=== PATIENT | female | born 1975 | race Caucasian/White ===

== ENCOUNTER 2017-09-18 21:26 | Emergency (ER) | payer BC ==
[2017-09-18] MEDS ORDERED: Aspirin 81 MG Tab.Chew PO ONE (21:44)
[2017-09-18] MEDS ORDERED: Sodium Chloride 0.9% 2.5 ML Syringe FLUSH PRN (21:45)
[2017-09-18] MEDS ORDERED: Pantoprazole 40 MG Vial IVPUSH ONE (21:45)
[2017-09-18] MEDS ORDERED: Sodium Chloride 0.9% 10 ML Syringe FLUSH PRN (21:45)
--- NOTE | 2017-09-18 21:49 | EDM.PDOC ---
ED HPI GENERAL MEDICAL PROBLEM - General Chief Complaint: Chest Pain Stated Complaint: PT HAS CHEST PAINS Time Seen by Provider: 09/18/17 21:31 - History of Present Illness INITIAL COMMENTS - FREE TEXT/NARRATIVE: HISTORY AND PHYSICAL: History of present illness: The patient is a 42-year-old female who presents with sudden onset of lower midsternal chest discomfort that started about 30 minutes prior to coming to the ER. The patient had a normal day earlier with no systemic complaints no upper respiratory symptoms and ate dinner, spaghetti with she, at approximately 5:30 or 4 hours ago. Patient has not had any recent trauma. Patient does smoke 8 -10 cigarettes a day. Patient says she was sitting watching TV when she had sudden onset of the discomfort which radiated underneath bilateral breasts into her back and did cause her to get sweaty and nauseated but she did not vomit. The patient says that at its peak it was an 8-1/2/10 and currently it is 0. The patient took omeprazole at home prior to coming here and took Excedrin earlier in the day for headache. The patient says that something similar to this happened a year or so ago and patient was placed on omeprazole for short period of time as it was felt that the discomfort was more GI in etiology. She does not take the omeprazole [id number] on a regular basis but has it at home in case the symptoms occur. The patient currently in the ER is not short of breath and having no chest pain. She has no abdominal complaints no nausea and has no leg pain or swelling. The patient has a history of a vaginal hysterectomy but they left her ovaries behind and she has not gone for the menopause. She has never had a stress test and she does not know her cholesterol or lipid panel. As far as family history, the patient's father had a heart attack at 57 years of age but the patient says she is not sure if this man is truly her father or not as it is unclear from her mother. The patient has never had an endoscopy. The patient denies drug use Review of systems: As per history of present illness and below otherwise all systems reviewed and negative. Past medical history: As per history of present illness and as reviewed below otherwise noncontributory. Surgical history: As per history of present illness and as reviewed below otherwise noncontributory. Social history: No reported history of drug or alcohol abuse. Family history: As per history of present illness and as reviewed below otherwise noncontributory. Physical exam: Gen.: Well-developed well-nourished female who is nontoxic and speaking clearly and easily in the ED. Vital signs have been reviewed by me HEENT: Atraumatic, normocephalic, negative for conjunctival pallor or scleral icterus, mucous membranes moist, throat clear, neck supple, nontender, trachea midline. Lungs: Clear to auscultation, breath sounds equal bilaterally, chest nontender. Heart: S1S2, regular, negative for clicks, rubs, or JVD. Abdomen: Soft, nondistended, nontender. Negative for masses or hepatosplenomegaly. NABS Pelvis: Stable nontender. 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: Deferred. Rectal: Deferred. Extremities: Atraumatic, negative for cords or calf pain. Neurovascular unremarkable. No pedal edema no leg asymmetry Neuro: Awake, alert, oriented. Cranial nerves II through XII unremarkable. Cerebellum unremarkable. Motor and sensory unremarkable throughout. Exam nonfocal. Skin: No diaphoresis normal turgor no overt rashes or lesions Diagnostics: EKG chest x-ray CBC CMP amylase lipase d-dimer INR troponin H pylori Therapeutics: IV O2 monitor aspirin Protonix Discussed with the patient and at length observation admission and all the testing results and they are declining at this time. The patient elected to follow-up in the clinic and believes it's more GI related but I did caution her to return if the symptoms return or any changes. She understands the risks and benefits of this selection. I've advised her to take 325 Ecotrin aspirin every day until she is followed up as well as the [id number] omeprazole daily. I 've also advised her on a low-fat diet and that she can always return here if the symptoms return or if she would like to seek admission. Impression: Atypical chest pain resolved prior to admission Definitive disposition and diagnosis as appropriate pending reevaluation and review of above. Middle Chest Pain Score (Numeric/FACES): 8 - Related Data Allergies Allergy/AdvReac Type Severity Reaction Status Date / Time No Known Allergies Allergy Verified 09/18/17 21:36 Home Meds: Home Meds . 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, Other (See Below) Musculoskeletal History: Reports: None Neurological History: Reports: None, Other (See Below) Other Neuro History: hx of motion sickness Psychiatric History: Reports: None Endocrine/Metabolic History: Reports: Obesity/BMI 30+ Hematologic History: Reports: None Immunologic History: Reports: None Oncologic (Cancer) History: Reports: None Dermatologic History: Reports: None - Infectious Disease History Infectious Disease History: Reports: Chicken Pox - Past Surgical History Female Surgical History: Reports: Kidney stone extraction, Tubal Ligation Social & Family History - Family History Family Medical History: Noncontributory - Tobacco Use Smoking Status *Q: Current Every Day Smoker Years of Tobacco use: 20 Packs/Tins Daily: 0.5 - Recreational Drug Use Recreational Drug Use: No Drug Use in Last 12 Months: No ED ROS GENERAL - Review of Systems Review Of Systems: ROS reveals no pertinent complaints other than HPI. ED EXAM, GENERAL - Physical Exam Exam: See Below (See dictation) Course - Vital Signs Last Recorded V/S: Last Vital Signs Temp 36.0 C 09/18/17 21:32 Pulse 76 09/18/17 22:05 Resp 16 09/18/17 22:05 BP 139/79 09/18/17 22:05 Pulse Ox 96 09/18/17 22:05 - Orders/Labs/Meds Orders: Active Orders 24 hr Category Date Time Status Cardiac Monitoring [RC] . DIRECTED Care 09/18/17 21:44 Active EKG 12 Lead [EKG Documentation Completion] [RC] STAT Care 09/18/17 21:41 Active Oxygen Therapy, ED [RC] ASDIRECTED Care 09/18/17 21:44 Active Pulse Oximetry [RC] ASDIRECTED Care 09/18/17 21:44 Active Chest 1V Frontal [CR] Stat Exams 09/18/17 21:44 Taken Sodium Chloride 0.9% [Saline Flush] Med 09/18/17 21:45 Active 10 ml FLUSH ASDIRECTED PRN Sodium Chloride 0.9% [Saline Flush] Med 09/18/17 21:45 Active 2.5 ml FLUSH ASDIRECTED PRN Saline Lock Insert [OM.PC] Stat Oth 09/18/17 21:44 Ordered Medication Orders Sodium Chloride (Saline Flush) 10 ml FLUSH ASDIRECTED PRN PRN Reason: Keep Vein Open Last Admin: 09/18/17 21:45 Dose: 10 ml Sodium Chloride (Saline Flush) 2.5 ml FLUSH ASDIRECTED PRN PRN Reason: Keep Vein Open Last Admin: 09/18/17 21:46 Dose: 2.5 ml Labs: Laboratory Tests 09/18/17 09/18/17 09/18/17 Range/Units 21:45 21:45 21:45 WBC 13.39 H (4.0-11.0) K/uL RBC 4.55 (4.30-5.90) M/uL Hgb 14.0 (12.0-16.0) g/dL Hct 41.0 (36.0-46.0) % MCV 90.1 (80.0-98.0) fL MCH 30.8 (27.0-32.0) pg MCHC 34.1 (31.0-37.0) g/dL RDW Std Deviation 43.6 (28.0-62.0) fl RDW Coeff of Reic 13 (11.0-15.0) % Plt Count 286 (150-400) K/uL MPV 10.30 (7.40-12.00) fL Neut % (Auto) 49.6 (48.0-80.0) % Lymph % (Auto) 42.0 H (16.0-40.0) % Cherry % (Auto) 6.0 (0.0-15.0) % Eos % (Auto) 2.3 (0.0-7.0) % Baso % (Auto) 0.1 (0.0-1.5) % Neut # (Auto) 6.6 H (1.4-5.7) K/uL Lymph # (Auto) 5.6 H (0.6-2.4) K/uL Cherry # (Auto) 0.8 (0.0-0.8) K/uL Eos # (Auto) 0.3 (0.0-0.7) K/uL Baso # (Auto) 0.0 (0.0-0.1) K/uL Nucleated RBC % 0.0 /100WBC Nucleated RBCs # 0 K/uL INR 1.00 (0.86-1.11) D-Dimer, Quantitative 0.27 (0.0-0.52) mg/LFEU Sodium 139 (136-146) mmol/L Potassium 3.8 (3.5-5.1) mmol/L Chloride 108 (98-110) mmol/L Carbon Dioxide 21 (21-31) mmol/L BUN 17 (6.0-23.0) mg/dL Creatinine 0.8 (0.6-1.5) mg/dL Est Cr Clr Drug Dosing 85.76 mL/min Estimated GFR (MDRD) > 60.0 ml/min Glucose 161 H (60-110) mg/dL Calcium 9.2 (8.8-10.8) mg/dL Total Bilirubin 0.6 (0.1-1.5) mg/dL AST 70 H (5-40) IU/L ALT 37 (8-54) IU/L Alkaline Phosphatase 85 (40-150) Troponin I < 0.10 (0.0-0.29) NG/ML Total Protein 6.8 (6.0-8.0) g/dL Albumin 4.0 (3.5-5.0) g/dL Globulin 2.8 (2.0-3.5) g/dL Albumin/Globulin Ratio 1.4 (1.3-2.8) Amylase 27 (10-90) U/L Lipase 30 (7-80) U/L H. pylori IgG Antibody (NEG) 09/18/17 Range/Units 21:45 WBC (4.0-11.0) K/uL RBC (4.30-5.90) M/uL Hgb (12.0-16.0) g/dL Hct (36.0-46.0) % MCV (80.0-98.0) fL MCH (27.0-32.0) pg MCHC (31.0-37.0) g/dL RDW Std Deviation (28.0-62.0) fl RDW Coeff of Eric (11.0-15.0) % Plt Count (150-400) K/uL MPV (7.40-12.00) fL Neut % (Auto) (48.0-80.0) % Lymph % (Auto) (16.0-40.0) % Cherry % (Auto) (0.0-15.0) % Eos % (Auto) (0.0-7.0) % Baso % (Auto) (0.0-1.5) % Neut # (Auto) (1.4-5.7) K/uL Lymph # (Auto) (0.6-2.4) K/uL Cherry # (Auto) (0.0-0.8) K/uL Eos # (Auto) (0.0-0.7) K/uL Baso # (Auto) (0.0-0.1) K/uL Nucleated RBC % /100WBC Nucleated RBCs # K/uL INR (0.86-1.11) D-Dimer, Quantitative (0.0-0.52) mg/LFEU Sodium (136-146) mmol/L Potassium (3.5-5.1) mmol/L Chloride (98-110) mmol/L Carbon Dioxide (21-31) mmol/L BUN (6.0-23.0) mg/dL Creatinine (0.6-1.5) mg/dL Est Cr Clr Drug Dosing mL/min Estimated GFR (MDRD) ml/min Glucose (60-110) mg/dL Calcium (8.8-10.8) mg/dL Total Bilirubin (0.1-1.5) mg/dL AST (5-40) IU/L ALT (8-54) IU/L Alkaline Phosphatase (40-150) Troponin I (0.0-0.29) NG/ML Total Protein (6.0-8.0) g/dL Albumin (3.5-5.0) g/dL Globulin (2.0-3.5) g/dL Albumin/Globulin Ratio (1.3-2.8) Amylase (10-90) U/L Lipase (7-80) U/L H. pylori IgG Antibody NEGATIVE (NEG) Meds: Medications Generic Name Dose Route Start Last Admin Trade Name Freq PRN Reason Stop Dose Admin Sodium Chloride 10 ml 09/18/17 21:45 09/18/17 21:45 Saline Flush FLUSH 10 ml ASDIRECTED PRN Administration Keep Vein Open Sodium Chloride 2.5 ml 09/18/17 21:45 09/18/17 21:46 Saline Flush FLUSH 2.5 ml ASDIRECTED PRN Administration Keep Vein Open Discontinued Medications Generic Name Dose Route Start Last Admin Trade Name Charles PRN Reason Stop Dose Admin Aspirin 324 mg 09/18/17 21:44 09/18/17 21:53 Aspirin PO 09/18/17 21:45 324 mg ONETIME ONE Administration Pantoprazole Sodium 40 mg 09/18/17 21:45 09/18/17 21:55 Protonix Iv IVPUSH 09/18/17 21:46 40 mg NOW ONE Administration Departure - Departure Time of Disposition: 22:42 Disposition: Home, Self-Care 01 Condition: Good Clinical Impression: Chest pain Qualifiers: Chest pain type: unspecified Qualified Code(s): R07.9 - Chest pain, unspecified - Discharge Information Referrals: PCP,None [Primary Care Provider] - Forms: ED Department Discharge Additional Instructions: The following information is given to patients seen in the emergency department who are being discharged to home. This information is to outline your options for follow-up care. We provide all patients seen in our emergency department with a follow-up referral. The need for follow-up, as well as the timing and circumstances, are variable depending upon the specifics of your emergency department visit. If you don't have a primary care physician on staff, we will provide you with a referral. We always advise you to contact your personal physician following an emergency department visit to inform them of the circumstance of the visit and for follow-up with them and/or the need for any referrals to a consulting specialist. The emergency department will also refer you to a specialist when appropriate. This referral assures that you have the opportunity for followup care with a specialist. All of these measure are taken in an effort to provide you with optimal care, which includes your followup. Under all circumstances we always encourage you to contact your private physician who remains a resource for coordinating your care. When calling for followup care, please make the office aware that this follow-up is from your recent emergency room visit. If for any reason you are refused follow-up, please contact the emergency department at and ask to speak to the emergency department charge nurse. [facility] Primary care- Internal Medicine and Family [place] [phone] [facility] Specialty Care-General Surgery Professional Building [address] [place] [address] [address] [place] [address] Please take 325 mg Ecotrin every day until you are followed up in the clinic. Please call at 8 AM to get an expedited follow-up in the clinic with either Dr. Lopez or one of the other providers. Also call the surgery clinic to get evaluation for a possible endoscopy. Continue to take the [id number] omeprazole daily until you are followed up. Please try to reduce smoking and eat a low-fat diet. Return to ER as needed and as discussed - My Orders Last 24 Hours: My Active Orders 09/18/17 21:41 EKG 12 Lead [EKG Documentation Completion] [RC] STAT 09/18/17 21:44 Cardiac Monitoring [RC] . DIRECTED Oxygen Therapy, ED [RC] ASDIRECTED Pulse Oximetry [RC] ASDIRECTED Chest 1V Frontal [CR] Stat Saline Lock Insert [OM.PC] Stat 09/18/17 21:45 Sodium Chloride 0.9% [Saline Flush] 10 ml FLUSH ASDIRECTED PRN Sodium Chloride 0.9% [Saline Flush] 2.5 ml FLUSH ASDIRECTED PRN - Assessment/Plan Last 24 Hours: My Active Orders 09/18/17 21:41 EKG 12 Lead [EKG Documentation Completion] [RC] STAT 09/18/17 21:44 Cardiac Monitoring [RC] . DIRECTED Oxygen Therapy, ED [RC] ASDIRECTED Pulse Oximetry [RC] ASDIRECTED Chest 1V Frontal [CR] Stat Saline Lock Insert [OM.PC] Stat 09/18/17 21:45 Sodium Chloride 0.9% [Saline Flush] 10 ml FLUSH ASDIRECTED PRN Sodium Chloride 0.9% [Saline Flush] 2.5 ml FLUSH ASDIRECTED PRN
[2017-09-18 22:22] LABS: CHLORIDE,CL 108 mmol/L (98-110); SODIUM,NA 139 mmol/L (136-146)
[2017-09-18 22:44] VITALS: BP 128/85
--- NOTE | 2017-09-19 12:58 | CR ---
EXAM DATE: 09/18/17 PATIENT'S AGE: 42 Patient: CHAUNCEY BELLA Facility: [place], [place] Site Site : 1975 Study: XRay Chest [id number] 10:07:20 PM Ordering Physician: MICHEAL Final Report: Indication: Chest pain Technique: Chest 1 view Comparison: June 12, 2016. Findings/Impression: Stable cardiomediastinal silhouette. Lungs and pleural spaces are clear. No acute osseous abnormality. Dictated by Gypsy Loera MD @ Sep 18 2017 10:20PM (Electronic Signature) Report Signed by Proxy. [facility]
== END 2017-09-18 22:47 | disposition home or self-care (01) ==
LOC: MW.ED 21:26
DX: R07.89 Other chest pain (principal); F17.210 Nicotine dependence, cigarettes, uncomplicated
CPT/HCPCS: 36415; 71010; 80053; 82150; 83690; 84484; 85025; 85379; 85610; 86677; 93005; 96374; 99285; A9270; C9113; 99282

== ENCOUNTER 2017-09-19 | Observation (INO) | payer BC ==
[2017-09-19] MEDS ORDERED: Sodium Chloride 0.9% 2.5 ML Syringe FLUSH PRN ×2 (00:03→02:54)
[2017-09-19] MEDS ORDERED: Sodium Chloride 0.9% 10 ML Syringe FLUSH PRN ×2 (00:03→02:54)
[2017-09-19] MEDS ORDERED: Ondansetron 4 MG/2 ML SDV IVPUSH ONE (00:08)
[2017-09-19] MEDS ORDERED: HYDROmorphone 2 MG/ML Syringe IVPUSH ONE (00:08)
[2017-09-19] MEDS ORDERED: Alum Hydrox/Mag Hydrox/Simeth 15 ML, Metoclopramide 5 MG, Lidocaine 2% 5 ML PO ONE ×3 (00:09)
--- NOTE | 2017-09-19 00:09 | EDM.PDOC ---
ED HPI GENERAL MEDICAL PROBLEM - General Chief Complaint: Abdominal Pain Stated Complaint: PT HAS CHEST PAINS Time Seen by Provider: 09/19/17 00:02 - History of Present Illness INITIAL COMMENTS - FREE TEXT/NARRATIVE: HISTORY AND PHYSICAL: History of present illness: The patient is a 42-year-old female with no significant past medical history who represented after being seen just an hour or so earlier in the [facility] department. She was seen at that time for sudden onset of lower mid sternal chest pain that she has had in the past took omeprazole at home prior to coming here. By the time she arrived in the ED on that visit it had resolved. We performed an EKG chest x-ray CBC CMP amylase lipase d-dimer troponin and H. pylori all of which were negative. Patient received aspirin and Protonix here only. She never redeveloped the pain. She was offered admission and declined and wanted to go home and pursue outpatient evaluation. She returns now with the same as comfort which she says is severe like it was before she came the last time. It is midsternal and epigastric and does not radiate. It is associated with nausea but no diaphoresis . She has no shortness of breath. She has no lower abdominal pain and says that the epigastric discomfort does go a little bit to the right. She has last eaten any food at least several hours ago and after she left the ED she just without ready for bed and the pain returned. She has no leg pain or swelling. Everything about this episode is similar to her prior. Review of systems: As per history of present illness and below otherwise all systems reviewed and negative. Past medical history: As per history of present illness and as reviewed below otherwise noncontributory. Surgical history: As per history of present illness and as reviewed below otherwise noncontributory. Social history: No reported history of drug or alcohol abuse. Family history: As per history of present illness and as reviewed below otherwise noncontributory. Physical exam: General: Well-developed mildly overweight female who is nontoxic and looks very uncomfortable the room and keeps putting her fist in the middle of her chest and writhing about in a colicky-like fashion. Vital signs of been reviewed by me. HEENT: Atraumatic, normocephalic, negative for conjunctival pallor or scleral icterus, mucous membranes moist, throat clear, neck supple, nontender, trachea midline. Lungs: Clear to auscultation, breath sounds equal bilaterally, chest nontender. Heart: S1S2, regular rate and rhythm no overt murmurs. Abdomen: Soft, nondistended, there is some mild discomfort in the epigastric and right upper quadrant area but no rebound or guarding Negative for masses or hepatosplenomegaly. NABS Pelvis: Stable nontender. 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: Deferred. Rectal: Deferred. Extremities: Atraumatic, negative for cords or calf pain. Neurovascular unremarkable.No pedal edema or leg asymmetry Neuro: Awake, alert, oriented. Cranial nerves II through XII unremarkable. Cerebellum unremarkable. Motor and sensory unremarkable throughout. Exam nonfocal. Diagnostics: EKG troponin CT scan of the chest abdomen and pelvis Therapeutics: IV O2 monitor IV fluids Zofran Dilaudid GI cocktail sublingual nitroglycerin When the patient was given the sublingual nitroglycerin by the nurse there was no change in her pain but now after Dilaudid her pain is pretty much gone and we are awaiting further testing. 0200: Testing results in case was discussed with our hospitalist Dr. Jones who accepts the patient for observation admission. I will discuss all testing results with the patient and at bedside and she will be agreeable for the admission. She told me that she was agreeable to admission when she arrived this second time Impression: Chest pain/epigastric pain rule out ACS Definitive disposition and diagnosis as appropriate pending reevaluation and review of above. Epigastric Pain Score (Numeric/FACES): 8 - Related Data Allergies Allergy/AdvReac Type Severity Reaction Status Date / Time No Known Allergies Allergy Verified 09/19/17 00:12 Home Meds: Home Meds . 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, Other (See Below) Musculoskeletal History: Reports: None Neurological History: Reports: None, Other (See Below) Other Neuro History: hx of motion sickness Psychiatric History: Reports: None Endocrine/Metabolic History: Reports: Obesity/BMI 30+ Hematologic History: Reports: None Immunologic History: Reports: None Oncologic (Cancer) History: Reports: None Dermatologic History: Reports: None - Infectious Disease History Infectious Disease History: Reports: Chicken Pox - Past Surgical History Female Surgical History: Reports: Kidney stone extraction, Tubal Ligation Social & Family History - Family History Family Medical History: Noncontributory - Tobacco Use Smoking Status *Q: Current Every Day Smoker Years of Tobacco use: 20 Packs/Tins Daily: 0.5 - Caffeine Use Caffeine Use: Reports: Coffee, Energy Drinks, Soda Caffeine Use Comment: "very rarely" - Recreational Drug Use Recreational Drug Use: No Drug Use in Last 12 Months: No ED ROS GENERAL - Review of Systems Review Of Systems: ROS reveals no pertinent complaints other than HPI. ED EXAM, GENERAL - Physical Exam Exam: See Below (See dictation) Course - Vital Signs Last Recorded V/S: Last Vital Signs Temp 36.7 C 09/19/17 01:42 Pulse 78 09/19/17 01:42 Resp 18 09/19/17 01:42 BP 122/65 09/19/17 01:42 Pulse Ox 95 09/19/17 01:42 - Orders/Labs/Meds Orders: Active Orders 24 hr Category Date Time Status Cardiac Monitoring [RC] . DIRECTED Care 09/19/17 00:03 Active EKG Documentation Completion [RC] STAT Care 09/19/17 00:03 Active Oxygen Therapy, ED [RC] ASDIRECTED Care 09/19/17 00:03 Active Pulse Oximetry [RC] ASDIRECTED Care 09/19/17 00:03 Active Abdomen Pelvis w Cont [CT] Stat Exams 09/19/17 00:07 Taken Ang Chest [CT] Stat Exams 09/19/17 00:07 Taken Sodium Chloride 0.9% [Normal Saline] 1,000 ml Med 09/19/17 00:15 Active IV ASDIRECTED Sodium Chloride 0.9% [Saline Flush] Med 09/19/17 00:03 Active 10 ml FLUSH ASDIRECTED PRN Sodium Chloride 0.9% [Saline Flush] Med 09/19/17 00:03 Active 2.5 ml FLUSH ASDIRECTED PRN Saline Lock Insert [OM.PC] Stat Oth 09/19/17 00:03 Ordered Medication Orders Sodium Chloride (Normal Saline) 1,000 mls @ 125 mls/hr IV ASDIRECTED NATE Last Admin: 09/19/17 00:29 Dose: 125 mls/hr Sodium Chloride (Saline Flush) 10 ml FLUSH ASDIRECTED PRN PRN Reason: Keep Vein Open Sodium Chloride (Saline Flush) 2.5 ml FLUSH ASDIRECTED PRN PRN Reason: Keep Vein Open Labs: Laboratory Tests 09/19/17 Range/Units 00:22 Troponin I < 0.10 (0.0-0.29) NG/ML Meds: Medications Generic Name Dose Route Start Last Admin Trade Name Freq PRN Reason Stop Dose Admin Sodium Chloride 1,000 mls @ 125 mls/hr 09/19/17 00:15 09/19/17 00:29 Normal Saline IV 125 mls/hr ASDIRECTED NATE Administration Sodium Chloride 10 ml 09/19/17 00:03 Saline Flush FLUSH ASDIRECTED PRN Keep Vein Open Sodium Chloride 2.5 ml 09/19/17 00:03 Saline Flush FLUSH ASDIRECTED PRN Keep Vein Open Discontinued Medications Generic Name Dose Route Start Last Admin Trade Name Freq PRN Reason Stop Dose Admin Al Hydroxide/Mg Hydroxide 15 0 ml 09/19/17 00:09 09/19/17 00:31 ml/ Metoclopramide HCl 5 mg/ PO 09/19/17 00:10 1 each Lidocaine HCl 5 ml ONETIME ONE Administration Hydromorphone HCl 1 mg 09/19/17 00:08 09/19/17 00:30 Dilaudid IVPUSH 09/19/17 00:09 1 mg ONETIME ONE Administration Iopamidol 100 ml 09/19/17 01:37 09/19/17 01:40 Isovue Multipack-370 (76%) IVPUSH 09/19/17 01:38 100 ml ONETIME STA Administration Nitroglycerin 0.4 mg 09/19/17 00:15 09/19/17 00:28 Nitrostat SL 09/19/17 00:26 0.4 mg Q5M NATE Administration Ondansetron HCl 4 mg 09/19/17 00:08 09/19/17 00:29 Zofran IVPUSH 09/19/17 00:09 4 mg ONETIME ONE Administration Departure - Departure Time of Disposition: 02:02 Disposition: Refer to Observation Condition: Good Clinical Impression: Epigastric pain Chest pain Qualifiers: Chest pain type: unspecified Qualified Code(s): R07.9 - Chest pain, unspecified - Discharge Information Referrals: PCP,None [Primary Care Provider] - Forms: ED Department Discharge - My Orders Last 24 Hours: My Active Orders 09/19/17 00:03 Cardiac Monitoring [RC] . DIRECTED EKG Documentation Completion [RC] STAT Oxygen Therapy, ED [RC] ASDIRECTED Pulse Oximetry [RC] ASDIRECTED Sodium Chloride 0.9% [Saline Flush] 10 ml FLUSH ASDIRECTED PRN Sodium Chloride 0.9% [Saline Flush] 2.5 ml FLUSH ASDIRECTED PRN Saline Lock Insert [OM.PC] Stat 09/19/17 00:07 Abdomen Pelvis w Cont [CT] Stat Ang Chest [CT] Stat 09/19/17 00:15 Sodium Chloride 0.9% [Normal Saline] 1,000 ml IV ASDIRECTED - Assessment/Plan Last 24 Hours: My Active Orders 09/19/17 00:03 Cardiac Monitoring [RC] . DIRECTED EKG Documentation Completion [RC] STAT Oxygen Therapy, ED [RC] ASDIRECTED Pulse Oximetry [RC] ASDIRECTED Sodium Chloride 0.9% [Saline Flush] 10 ml FLUSH ASDIRECTED PRN Sodium Chloride 0.9% [Saline Flush] 2.5 ml FLUSH ASDIRECTED PRN Saline Lock Insert [OM.PC] Stat 09/19/17 00:07 Abdomen Pelvis w Cont [CT] Stat Ang Chest [CT] Stat 09/19/17 00:15 Sodium Chloride 0.9% [Normal Saline] 1,000 ml IV ASDIRECTED
[2017-09-19] MEDS ORDERED: Sodium Chloride 0.9% 1,000 ML IV SCH (00:15)
[2017-09-19] MEDS: Nitroglycerin 0.4 MG Tab.SL SL SCH ×2 (00:28)
[2017-09-19] MEDS ORDERED: Iopamidol 755 MG/ML 500 ML Multipack Bottle IVPUSH STA (01:37)
--- NOTE | 2017-09-19 08:00 | PCM.HP ---
H&P History of Present Illness - General Date of Service: 09/19/17 Admit Problem/Dx: chest pain Source of Information: Patient History Limitations: Reports: No Limitations - History of Present Illness Initial Comments - Free Text/Narative: This 42 year old female with little pmh present to the ED with concerns of sharp mid sternal chest pain. She wsa seen twice in the ED, the first time she was given IV Protonix with some relief and felt she could go home, though admission was offered. She returned a hour later with sever worsening of pain. She denies diaphoresis, radiation to neck or arm. She reports some nausea, which happened for the first time last night. She reports the pain started initially around nine, they had eaten spaghetti made with ground beef. She reports this happened in the past before and noticed dairy caused it. She saw Dr. Lopez and was diagnosed with GERD. Her daughter had similar symptoms recently and had her gallbladder removed and has no further problems. She denies CAD, family HX cad or DM. She smokes 8-10 cigarettes daily, little alcohol use and no recreational drug use. In the ED WBC 13,000, glucose 161, Troponin negative x2 so far. EKG SR rate [address] segment changes. CXR negative. Angio chest negative, and abd CT negative as well. Nitro did not help pain, GI cocktail and Dilaudid given with pain relief to 2/10. VS stable. She was admitted with atypical chest pain PCP, Dr. Lopez Epigastric Pain Score (Numeric/FACES): 3 - Related Data Allergies/Adverse Reactions: Allergies Allergy/AdvReac Type Severity Reaction Status Date / Time No Known Allergies Allergy Verified 09/19/17 00:12 Home Medications: Home Meds Pantoprazole Sodium [Protonix] 40 mg PO BID #60 tablet. 09/19/17 [Rx] Past Medical History - Past Health History Medical/Surgical History: Denies Medical/Surgical History Other HEENT History: wears glasses Cardiovascular History: Reports: None. Denies: Blood Clots/VTE/DVT, CAD, High Cholesterol, Hypertension, [place] Respiratory History: Reports: None. 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 Denies: Anxiety, Depression Endocrine/Metabolic History: Reports: Obesity/BMI 30+. Denies: Diabetes, Type II, Hypothyroidism Hematologic History: Reports: None Immunologic History: Reports: None Oncologic (Cancer) History: Reports: None Dermatologic History: Reports: None - Infectious Disease History Infectious Disease History: Reports: Chicken Pox - Past Surgical History Head Surgeries/Procedures: Reports: None Female Surgical History: Reports: Kidney stone extraction, Tubal Ligation Social & Family History - Family History Family Medical History: Noncontributory - Tobacco Use Smoking Status *Q: Current Every Day Smoker Years of Tobacco use: 22 Packs/Tins Daily: 0.5 Used Tobacco, but Quit: No Second Hand Smoke Exposure: No - Caffeine Use Caffeine Use: Reports: None Caffeine Use Comment: "very rarely" - Recreational Drug Use Recreational Drug Use: No Drug Use in Last 12 Months: No - Living Situation & Occupation Living situation: Reports: Occupation: Employed H&P Review of Systems - Review of Systems: Review Of Systems: See Below General: Reports: No Symptoms. Denies: Fever, Chills, Malaise HEENT: Reports: No Symptoms. Denies: Headaches, Sinus Congestion, Sore Throat, Vertigo, Visual Changes Pulmonary: Reports: No Symptoms. Denies: Shortness of Breath, Wheezing, Cough, Sputum Cardiovascular: Reports: No Symptoms. Denies: Chest Pain, Edema Gastrointestinal: Reports: Abdominal Pain (epigastric tenderness), Distension. Denies: Black Stool, Bloody Stool, Nausea, Vomiting 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: Reports: No Symptoms. Denies: Dysuria, Frequency, Burning, Pain Musculoskeletal: Reports: No Symptoms. Denies: Neck Pain Psychiatric: Reports: No Symptoms Neurological: Reports: No Symptoms Hematologic/Lymphatic: Reports: No Symptoms Immunologic: Reports: No Symptoms Exam - Exam Exam: See Below - Vital Signs Vital Signs: Last Vital Signs Temp 96.9 F 09/19/17 02:25 Pulse 64 09/19/17 02:25 Resp 18 09/19/17 02:25 BP 130/66 09/19/17 02:25 Pulse Ox 98 09/19/17 02:25 Weight: 89.4 kg - Exam General: Alert, Oriented, Cooperative HEENT: Conjunctiva Clear Neck: Supple, Trachea Midline, 2 Lungs: Clear to Auscultation, Normal Respiratory Effort Cardiovascular: Regular Rate, Regular Rhythm GI/Abdominal Exam: Soft, No Organomegaly, No Distention, No Mass, Tender ( epigastric and +murphys sign) Extremities: Normal Inspection, Normal Range of Motion, Non-Tender, No Pedal Edema, Normal Capillary Refill Neuro Extensive - Mental Status: Alert, Oriented x3, Normal Mood/Affect, Normal Cognition Neuro Extensive - Motor, Sensory, Reflexes: CN II-XII Intact Psychiatric: Alert, Normal Affect, Normal Mood - Patient Data Lab Results Last 24 hrs: Laboratory Results - last 24 hr 09/19/17 Range/Units 06:17 Troponin I < 0.10 (0.0-0.29) NG/ML *Q Meaningful Use (ADM) - VTE *Q VTE Criteria *Q: - Stroke *Q Stroke Criteria *Q: - AMI *Q AMI Criteria *Q: - Problem List (1) Obesity (BMI 30.0-34.9) SNOMED Code(s): 381593331 ICD Code: E66.9 - OBESITY, UNSPECIFIED Status: Acute Current Visit: Yes (2) Epigastric pain SNOMED Code(s): 01579631 ICD Code: R10.13 - EPIGASTRIC PAIN Status: Acute Current Visit: Yes (3) Atypical chest pain SNOMED Code(s): 349591934 ICD Code: R07.89 - OTHER CHEST PAIN Status: Acute Current Visit: No Problem List Initiated/Reviewed/Updated: Yes Orders Last 24hrs: Active Orders 24 hr Category Date Time Status Telemetry Monitoring [Cardiac Monitoring] [RC] Q8H Care 09/19/17 02:53 Active Heart Healthy Diet [DIET] Diet 09/19/17 Breakfast Active GLYCOSYLATED HEMOGLOBIN,HGBA1C [CHEM] Routine Lab 09/19/17 07:56 Ordered LIPID PANEL [CHEM] Routine Lab 09/19/17 07:56 Ordered TROPONIN I [CHEM] Q6H Lab 09/19/17 12:22 Ordered Sodium Chloride 0.9% [Saline Flush] Med 09/19/17 02:54 Active 10 ml FLUSH ASDIRECTED PRN Sodium Chloride 0.9% [Saline Flush] Med 09/19/17 02:54 Active 2.5 ml FLUSH ASDIRECTED PRN Convert IV to Saline Lock [OM.PC] Routine Oth 09/19/17 02:54 Ordered Medication Orders Sodium Chloride (Saline Flush) 10 ml FLUSH ASDIRECTED PRN PRN Reason: Keep Vein Open Sodium Chloride (Saline Flush) 2.5 ml FLUSH ASDIRECTED PRN PRN Reason: Keep Vein Open Sodium Chloride (Saline Flush) 10 ml FLUSH ASDIRECTED PRN PRN Reason: Keep Vein Open Sodium Chloride (Saline Flush) 2.5 ml FLUSH ASDIRECTED PRN PRN Reason: Keep Vein Open Assessment/Plan Comment:: This 42 year old female admitted with atypical chest pain 1. 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 Question gallbladder ? Will obtain Liver US today. and attempt to schedule HIDA as outpatient. CT did not show gallbladder wall thickening or stones. Continue Protonix IV. Dispo: Probable discharge this afternoon. Discharge Plan: Genevieve was admitted, ACS ruled out, chest pain most likely due to biliary colic. Abdominal US revealed non-mobile gallstone noted within the neck of the gallbladder without significant gallbladder wall thickening. Trace pericholecystic fluid. AST 70 otherwise no elevation in LFTs. I spoke with Dr. Roberts, general surgery, who recommends follow up as outpatient as long as patient is feeling better and has no fevers. Pain is better and she is requesting discharge home now. Genevieve will be set up with outpatient appointment with Dr. Roberts in 1 week. She is to remain on low fat diet. She is to return to ED or clinic if concerns should arise.
[2017-09-19] MEDS ORDERED: Pantoprazole 40 MG Vial IVPUSH SCH (09:00)
[2017-09-19 12:24] VITALS: BP 121/69
--- NOTE | 2017-09-19 13:05 | CT ---
EXAM DATE: 09/19/17 PATIENT'S AGE: 42 Patient: CHAUNCEY BELLA Facility: [place], [place] Site . Site : 1975 Study: CT Chest Angio [id number]/2017 1:39:31 AM Ordering Physician: Daniela Angel Final Report: INDICATION: Chest pain, rule out PE. TECHNIQUE : CT scan of the chest. CTA PE protocol. IV contrast. IV Contrast: Isovue 370 100 mL Please note that all CT scans at this facility use dose modulation, iterative reconstruction and/or weight-based dosing when appropriate to reduce radiation dose to as low as reasonably achievable(ALARA). COMPARISON: None. 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 Pulmonary arteries: No focal filling defect. Thoracic aorta: Thoracic aorta is normal in caliber. No dissection. Heart and mediastinum: Minimal calcified coronary artery disease in the LAD on series 501, image 184. Heart size normal. No pericardial effusion. No pathologically enlarged mediastinal lymph nodes. Lungs and pleura: Scattered areas of ground-glass opacification in the lower lobes, a nonspecific finding. Lesser degree of involvement in the posterior upper lobes. Findings may represent pulmonary edema, atypical infection, or possible air trapping. Chest wall and soft tissues: Chest wall soft tissues unremarkable. Thyroid gland: Incomplete visualization. Upper abdomen: Visualized upper abdomen unremarkable. Bones: No acute abnormality. No thoracic compression fracture. IMPRESSION: 1. No acute pulmonary embolism, pleural effusion, or pneumothorax. 2. Minimal calcified coronary artery disease in the LAD. 3. Scattered areas of nonspecific ground-glass opacities in the upper and lower lobes. Findings may represent air trapping, faint degree of pulmonary edema, or atypical inflammatory or infectious process. Dictated by ePrcy Hargrove MD @ 09/19/2017 1:49:06 AM Dictated by: Percy Hargrove MD @ 09/19/2017 01:49:12 (Electronic Signature) Report Signed by Proxy. [facility]
--- NOTE | 2017-09-19 13:06 | CT ---
EXAM DATE: 09/19/17 PATIENT'S AGE: 42 Patient: CHAUNCEY BELLA Facility: [place], [place] Site . Site : 1975 Study: CT Abdomen/Pelvis [id number]/16/2017 1:42:50 AM Ordering Physician: Daniela Angel Final Report: INDICATION: Upper abdominal pain. History of hysterectomy in 2015. Prior tubal ligation in 1999. TECHNIQUE: CT abdomen and pelvis acquired with i.v. 100 mL Isovue 370. Coronal and sagittal reformats were obtained. COMPARISON: None FINDINGS: Lower chest: Unremarkable. No residual ground-glass opacities at the imaged lung bases. Liver: Unremarkable. Spleen: Unremarkable. Pancreas: Unremarkable. Gallbladder and bile ducts: Unremarkable. Kidneys: Unremarkable. No kidney or ureteral stones and no hydronephrosis seen. Adrenal glands: Unremarkable. GI tract: Unremarkable. The appendix is normal in appearance and size. Vascular: Unremarkable. Lymph nodes: Unremarkable. Miscellaneous: Unremarkable. No pneumoperitoneum is seen. No significant ascites is noted. Splenule in the left upper abdominal quadrant on series 601, image 65, lateral to the left kidney. Pelvic Organs: Uterus not identified. Adnexal structures unremarkable. Bladder within normal limits. Bones: Unremarkable for age. IMPRESSION: 1. Unremarkable CT of the abdomen and pelvis. No clear etiology identified for patient`s clinical symptoms of upper abdominal pain. Dictated by Percy Hargrove MD @ 09/19/2017 1:54:25 AM Dictated by: Percy Hargrove MD @ 09/19/2017 01:54:31 (Electronic Signature) Report Signed by Proxy. [facility]
[2017-09-19] MEDS ORDERED: Ketorolac 30 MG/ML SDV IVPUSH ONE (13:46)
--- NOTE | 2017-09-19 14:02 | US ---
EXAMINATION: Abdominal ultrasound HISTORY: Positive Ugalde sign COMPARISON: CT dated 09/19/2017 TECHNIQUE: Grayscale, color Doppler and spectral Doppler images obtained of the abdomen. FINDINGS: The pancreas is not optimally characterized. The visualized IVC and aorta appear normal. Th e liver is normal in contour and echotexture without a focal hepatic mass. The gallbladder wall thick ness is normal. There is a possible trace pericholecystic fluid. There is a nonmobile gallstone withi n the neck of the gallbladder. Common bile duct measures 2 mm. The right kidney measures at least 10. 7 cm and the left kidney measures at least 10.8 cm qbyc-ei-lday without evidence of hydronephrosis. T he spleen is normal. There is no abdominal ascites. IMPRESSION: 1. Nonmobile gallstone noted within the neck of the gallbladder without significant gallbladder wall thickening. Correlate clinically for cholecystitis. 2. Otherwise unremarkable abdominal ultrasound.
== END 2017-09-19 14:50 | disposition home or self-care (01) ==
LOC: MW.ED → MW.MS 02:11
PROVIDERS: ADMIT Internal Medicine; ATTEND Internal Medicine
DX: R07.2 Precordial pain (principal); R10.13 Epigastric pain; K21.9 Gastro-esophageal reflux disease without esophagitis; F17.210 Nicotine dependence, cigarettes, uncomplicated; K80.20 Calculus of gallbladder without cholecystitis without obstruction; E66.9 Obesity, unspecified; Z87.440 Personal history of urinary (tract) infections; Z98.51 Tubal ligation status; Z98.890 Other specified postprocedural states; Z90.710 Acquired absence of both cervix and uterus
CPT/HCPCS: 36415; 71275; 74177; 76700; 80061; 83036; 84484; 96361; 96374; 96375; 99285; A9270; C9113; G0378; J1170; J1885; J2405; J7040; Q9967; 99282

== ENCOUNTER 2017-09-30 12:29 | Day surgery (SDC) | payer BC ==
[~2017-09-30 12:29] MED LIST: Lactated Ringers 1,000 ML IV SCH; Lidocaine 2% 5 ML SDV ONE
--- NOTE | 2017-09-30 13:29 | PCM.PREANE ---
Preanesthetic Assessment - Anesthesia/Transfusion/Family Hx Anesthesia History: Prior Anesthesia Without Reaction Family History of Anesthesia Reaction: No Transfusion History: No Prior Transfusion(s) Intubation History: Unknown - Review of Systems General: No Symptoms Pulmonary: No Symptoms Cardiovascular: No Symptoms Gastrointestinal: Abdominal Pain Neurological: No Symptoms Other: Reports: None - Physical Assessment O2 Sat by Pulse Oximetry: 98 Respiratory Rate: 16 Vital Signs: Last Vital Signs Temp 37.0 C 09/30/17 13:19 Pulse 62 09/30/17 13:19 Resp 16 09/30/17 13:19 BP 116/82 09/30/17 13:19 Pulse Ox 98 09/30/17 13:19 Height: 1.68 m Weight: 87.543 kg ASA Class: 2 Mental Status: Alert & Oriented x3 Airway Class: Mallampati = 2 Dentition: Reports: Normal Dentition Thyro-Mental Finger Breadths: 3 Mouth Opening Finger Breadths: 3 ROM/Head Extension: Full Lungs: Clear to Auscultation, Normal Respiratory Effort Cardiovascular: Regular Rate, Regular Rhythm - Allergies Allergies/Adverse Reactions: Allergies Allergy/AdvReac Type Severity Reaction Status Date / Time No Known Allergies Allergy Verified 09/19/17 00:12 - Blood Blood Available: No - Anesthesia Plan Pre-Op Medication Ordered: None - Acknowledgements Anesthesia Type Planned: MAC Pt an Appropriate Candidate for the Planned Anesthesia: Yes Alternatives and Risks of Anesthesia Discussed w Pt/Guardian: Yes Pt/Guardian Understands and Agrees with Anesthesia Plan: Yes PreAnesthesia Questionnaire - Past Health History Medical/Surgical History: Denies Medical/Surgical History HEENT History: Reports: Other (See Below) Other HEENT History: wears glasses Cardiovascular History: Reports: None Respiratory History: Reports: None Gastrointestinal History: Reports: Cholelithiasis, GERD 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 History: Reports: Renal Calculus 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: Musculoskeletal History: Reports: None Neurological History: Reports: Other (See Below) Other Neuro History: hx of motion sickness Psychiatric History: Reports: None Endocrine/Metabolic History: Reports: Obesity/BMI 30+ Hematologic History: Reports: None Immunologic History: Reports: None Oncologic (Cancer) History: Reports: None Dermatologic History: Reports: None - Infectious Disease History Infectious Disease History: Reports: Chicken Pox - Past Surgical History Head Surgeries/Procedures: Reports: None HEENT Surgical History: Reports: None Cardiovascular Surgical History: Reports: None GI Surgical History: Reports: None Female Surgical History: Reports: Hysterectomy, Kidney stone extraction, Tubal Ligation Other Female Surgeries/Procedures: vaginal hysterectomy Endocrine Surgical History: Reports: None Neurological Surgical History: Reports: None Musculoskeletal Surgical History: Reports: None Oncologic Surgical History: Reports: None Dermatological Surgical History: Reports: None - SUBSTANCE USE Smoking Status *Q: Current Every Day Smoker (1/2 ppd) Tobacco Use Within Last Twelve Months: Cigarettes Second Hand Smoke Exposure: No Recreational Drug Use History: No - HOME MEDS Home Medications: Home Meds Pantoprazole Sodium [Protonix] 40 mg PO BID #60 tablet. 09/19/17 [Rx] Acetaminophen [Tylenol Extra Strength] 2 tab PO ASDIRECTED PRN 09/24/17 [History ] - CURRENT (IN HOUSE) MEDS Current Meds: Current Medications Lactated Ringer's (Ringers, Lactated) 1,000 mls @ 125 mls/hr IV ASDIRECTED NATE Last Admin: 09/30/17 13:16 Dose: 125 mls/hr Discontinued Medications Lidocaine (Xylocaine-Mpf 2%) Confirm Administered Dose 5 ml .ROUTE .STK-MED ONE Stop: 09/30/17 10:35
[2017-09-30] MEDS ORDERED: Propofol 200 MG/20 ML SDV ONE ×2 (15:44→15:59)
[2017-09-30] MEDS ORDERED: Benzocaine/Cetylpyridinium/Menthol Lozenge MUCMEM PRN (16:15)
--- NOTE | 2017-09-30 16:15 | PCM.OPNOTE ---
- General Post-Op/Procedure Note Date of Surgery/Procedure: 09/30/17 Operative Procedure(s): Esophagogastroduodenoscopy with biopsy Pre Op Diagnosis: Epigastric pain Post-Op Diagnosis: Gastritis with esophagitis Anesthesia Technique: MAC (ASA II) Primary Surgeon: Andrés Roberts Strain Technician: Last Carrillo Condition: Good Free Text/Narrative:: Dictation [id number] CPT CODE 80242
--- NOTE | 2017-09-30 16:19 | PCM.POSTAN ---
POST ANESTHESIA ASSESSMENT - MENTAL STATUS Mental Status: Alert, Oriented - RESPIRATORY Respiratory Status: Respiratory Rate WNL, Airway Patent, O2 Saturation Stable - CARDIOVASCULAR CV Status: Pulse Rate WNL, Blood Pressure Stable - GASTROINTESTINAL GI Status: No Symptoms - PAIN Pain Score: 0 - POST OP HYDRATION Hydration Status: Adequate & Stable
[2017-09-30 16:49] VITALS: BP 132/82
--- NOTE | 2017-09-30 21:10 | OR ---
SURGEON: Andrés Roberts M.D. DATE OF PROCEDURE: 09/30/2017 OPERATION PERFORMED: Esophagogastroduodenoscopy with biopsy. DROP WIRE OPERATOR: Dr. Mackenzie, PGY2. ANESTHESIA: MAC. ASA CLASSIFICATION: 2. PREOPERATIVE DIAGNOSIS: Persistent epigastric pain with reflux. POSTOPERATIVE DIAGNOSIS: Gastritis with esophagitis. DESCRIPTION OF PROCEDURE: The patient was taken to the endoscopy room, positioned on the endoscopy table in the supine position. Time-out was called for appropriate identification of the patient and procedure. Monitored anesthesia care was provided. The bite block was placed between the patient's teeth. The gastroscope was inserted into the mouth and advanced without difficulty through the esophagus and stomach into the duodenum where examination was carried out in a retrograde fashion. Duodenum shows no acute inflammatory changes or ulcerations. The stomach does show [id number]-ochuffix gastritis. Antral biopsies were obtained to look for the presence of Helicobacter pylori. The gastroscope was retroflexed to visualize the proximal stomach. No mid or proximal lesions were identified. The GE junction does show some mild inflammatory changes. Biopsies of this area were obtained. The esophagus demonstrated good contractility. No mid or proximal lesions were identified. The gastroscope was then slowly withdrawn carefully visualizing the vocal cords. No vocal cord lesions were identified. The vocal cords move symmetrically. The gastroscope was then removed with the patient having tolerated the procedure well. She was taken to the recovery room in stable condition. BRENDA ARREDONDO /[id number]
== END 2017-09-30 16:40 | disposition home or self-care (01) ==
LOC: MW.SDS 12:29
PROVIDERS: ATTEND Surgery
DX: K29.50 Unspecified chronic gastritis without bleeding (principal); K21.9 Gastro-esophageal reflux disease without esophagitis; E66.9 Obesity, unspecified; Z79.899 Other long term (current) drug therapy; Z98.51 Tubal ligation status; Z90.710 Acquired absence of both cervix and uterus; F17.200 Nicotine dependence, unspecified, uncomplicated; Z68.31 Body mass index [BMI] 31.0-31.9, adult
CPT/HCPCS: 43239; J7120; 88305; 88312; J2704

== ENCOUNTER 2017-10-18 06:27 | Day surgery (SDC) | payer BC ==
[~2017-10-18 06:27] MED LIST changes: -Lidocaine 2% 5 ML SDV ONE; +cefOXitin 2 GM in Premix Bag 1 BAG IV SCH
[2017-10-18] MEDS ORDERED: Scopolamine 1.5 MG Transdermal Patch TRDERM PRN (07:12)
--- NOTE | 2017-10-18 07:16 | PCM.PREANE ---
Preanesthetic Assessment - Anesthesia/Transfusion/Family Hx Anesthesia History: Prior Anesthesia Without Reaction Family History of Anesthesia Reaction: No Transfusion History: No Prior Transfusion(s) Intubation History: Unknown - Review of Systems General: No Symptoms Pulmonary: No Symptoms Cardiovascular: No Symptoms Gastrointestinal: Abdominal Pain Neurological: No Symptoms Other: Reports: None - Physical Assessment O2 Sat by Pulse Oximetry: 97 Respiratory Rate: 16 Vital Signs: Last Vital Signs Temp 36.7 C 10/18/17 07:02 Pulse 63 10/18/17 07:02 Resp 16 10/18/17 07:02 BP 118/75 10/18/17 07:02 Pulse Ox 97 10/18/17 07:02 Height: 1.68 m Weight: 87.543 kg ASA Class: 2 Mental Status: Alert & Oriented x3 Airway Class: Mallampati = 2 Dentition: Reports: Normal Dentition Thyro-Mental Finger Breadths: 3 Mouth Opening Finger Breadths: 3 ROM/Head Extension: Full Lungs: Clear to Auscultation, Normal Respiratory Effort Cardiovascular: Regular Rate, Regular Rhythm - Allergies Allergies/Adverse Reactions: Allergies Allergy/AdvReac Type Severity Reaction Status Date / Time No Known Allergies Allergy Verified 09/19/17 00:12 - Blood Blood Available: No - Anesthesia Plan Pre-Op Medication Ordered: None - Acknowledgements Anesthesia Type Planned: General Anesthesia Pt an Appropriate Candidate for the Planned Anesthesia: Yes Alternatives and Risks of Anesthesia Discussed w Pt/Guardian: Yes Pt/Guardian Understands and Agrees with Anesthesia Plan: Yes PreAnesthesia Questionnaire - Past Health History Medical/Surgical History: Denies Medical/Surgical History HEENT History: Reports: Other (See Below) Other HEENT History: wears glasses Cardiovascular History: Reports: None Respiratory History: Reports: None Gastrointestinal History: Reports: GERD 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: Musculoskeletal History: Reports: None Neurological History: Reports: Other (See Below) Other Neuro History: hx of motion sickness Psychiatric History: Reports: None Endocrine/Metabolic History: Reports: Obesity/BMI 30+ Hematologic History: Reports: None Immunologic History: Reports: None Oncologic (Cancer) History: Reports: None Dermatologic History: Reports: None - Infectious Disease History Infectious Disease History: Reports: Chicken Pox - Past Surgical History Head Surgeries/Procedures: Reports: None HEENT Surgical History: Reports: None Cardiovascular Surgical History: Reports: None GI Surgical History: Reports: None Female Surgical History: Reports: Hysterectomy, Kidney stone extraction, Tubal Ligation Other Female Surgeries/Procedures: vaginal hysterectomy Endocrine Surgical History: Reports: None Neurological Surgical History: Reports: None Musculoskeletal Surgical History: Reports: None Oncologic Surgical History: Reports: None Dermatological Surgical History: Reports: None - SUBSTANCE USE Smoking Status *Q: Current Every Day Smoker (< 1/2 ppd) Tobacco Use Within Last Twelve Months: Cigarettes Second Hand Smoke Exposure: No Recreational Drug Use History: No - HOME MEDS Home Medications: Home Meds Pantoprazole Sodium [Protonix] 40 mg PO BID #60 tablet. 09/19/17 [Rx] Acetaminophen [Tylenol Extra Strength] 2 tab PO ASDIRECTED PRN 09/24/17 [History ] - CURRENT (IN HOUSE) MEDS Current Meds: Current Medications Cefoxitin Sodium 2 gm/ Premix 50 mls @ 100 mls/hr IV ONETIME NATE Lactated Ringer's (Ringers, Lactated) 1,000 mls @ 125 mls/hr IV ASDIRECTED NATE Last Admin: 10/18/17 07:00 Dose: 125 mls/hr Scopolamine (Transderm-Scop) 1.5 mg TRDERM Q72H PRN PRN Reason: Nausea
[2017-10-18] MEDS ORDERED: HYDROmorphone 2 MG/ML Syringe ONE (07:24)
[2017-10-18] MEDS ORDERED: Midazolam 1 MG/ML 2 ML SDV ONE (07:24)
[2017-10-18] MEDS ORDERED: Lidocaine 2% 5 ML SDV ONE (07:24)
[2017-10-18] MEDS ORDERED: Ondansetron 4 MG/2 ML SDV ONE (07:24)
[2017-10-18] MEDS ORDERED: fentaNYL 100 MCG/2 ML SDV ONE (07:24)
[2017-10-18] MEDS ORDERED: Rocuronium 10 MG/ML 10 ML Syringe ONE (07:24)
[2017-10-18] MEDS ORDERED: Propofol 200 MG/20 ML SDV ONE (07:24)
[2017-10-18] MEDS ORDERED: ceFAZolin 1 GM Vial ONE (07:40)
[2017-10-18] MEDS ORDERED: Bupivacaine 0.5% 10 ML SDV ONE (07:40)
[2017-10-18] MEDS ORDERED: diphenhydrAMINE 50 MG/ML SDV ONE (08:07)
[2017-10-18] MEDS ORDERED: Dexamethasone 4 MG/ML 5 ML MDV ONE (08:07)
[2017-10-18] MEDS ORDERED: Ketorolac 30 MG/ML SDV ONE (08:07)
[2017-10-18] MEDS ORDERED: fentaNYL 100 MCG/2 ML SDV IVPUSH PRN (08:27)
[2017-10-18] MEDS ORDERED: Acetaminophen/HYDROcodone 325-5 MG Tab PO PRN (09:18)
[2017-10-18] MEDS ORDERED: Morphine 10 MG/ML Syringe IVPUSH PRN (09:18)
--- NOTE | 2017-10-18 09:21 | PCM.OPNOTE ---
- General Post-Op/Procedure Note Date of Surgery/Procedure: 10/18/17 Operative Procedure(s): Laparoscopic cholecystectomy Pre Op Diagnosis: Symptomatic cholelithiasis Post-Op Diagnosis: Cholelithiasis with cholecystitis Anesthesia Technique: General ET Tube (ASA II) Primary Surgeon: Andrés Roberts Fluid Replacement, Intraop: 1,600 Output, Urine Amount: 230 EBL in mLs: 15 Condition: Good Free Text/Narrative:: Intake & Output 10/17/17 10/18/17 10/18/17 19:59 03:59 11:59 Output Total 230 Balance -230 Dictation [id number] CPT CODE 94201
[2017-10-18] MEDS ORDERED: Lactated Ringers 1,000 ML IV SCH (09:30)
--- NOTE | 2017-10-18 10:15 | OR ---
SURGEON: Andrés Roberts M.D. DATE OF PROCEDURE: 10/18/2017 OPERATION PERFORMED: Laparoscopic cholecystectomy. ANESTHESIA: General endotracheal. ASA CLASSIFICATION: II. PREOPERATIVE DIAGNOSIS: Symptomatic cholelithiasis. POSTOPERATIVE DIAGNOSIS: Symptomatic cholelithiasis. ESTIMATED BLOOD LOSS: 15 mL. INTRAOPERATIVE FLUID REPLACEMENT: 1600 mL of crystalloid. DESCRIPTION OF PROCEDURE: The patient was taken to the operating room and placed on the operating table in the supine position. Time-out was called for appropriate identification of the patient and procedure. Thigh-high TEDs and sequential compression boots were placed. Following satisfactory attainment of general endotracheal anesthesia, a Graham catheter was placed in the patient's urinary bladder. The abdomen was prepped with DuraPrep solution. Sterile drapes were applied. The skin just below the umbilicus was infiltrated with 0.5% Marcaine solution. The skin incision was made and deepened through the subcutaneous tissue obtaining hemostasis with the use of electrocautery. The Veress needle was introduced into the peritoneal cavity. The saline drop test was positive. Carbon dioxide pneumoperitoneum was established with the relief set at 13 cm of water. Once a satisfactory pneumoperitoneum was established, 5 mm camera and port were placed through the infraumbilical incision. The patient was now positioned with her feet down and rolled to the left. Under camera vision, 12 mm subxiphoid, 5 mm midclavicular, and 5 mm anterior axillary ports were placed. Each incision was preemptively infiltrated with 0.5% Marcaine solution. The gallbladder was grasped and adhesions were taken down. The cholecystohepatic triangle was dissected identifying the cystic duct and cystic artery, and obtaining critical view of both structures before hemoclipping these. Once they were hemo-clipped, the gallbladder was dissected away from its bed using electrocautery. Once the gallbladder was amputated, this was placed in an Endopouch, which was secured. The right upper quadrant was inspected for hemostasis and bile leak. Minimal oozing was noted from the liver bed and no bile leak. Surgicel was placed into the bed of the gallbladder. The right hemidiaphragm was then irrigated with 250 mL of saline containing 20 mL of 0.5% Marcaine solution. That fluid was all left in place. Under camera vision, the 12 mm subxiphoid port and Endopouch containing gallbladder were removed. Again under camera vision, the 5 mm midclavicular and anterior axillary ports were removed, and finally the infraumbilical camera and port were removed. Wounds were inspected for hemostasis and small bleeding sites were electrocoagulated. The subxiphoid and infraumbilical incisions were closed in 2 layers approximating the subcutaneous tissue with 3-0 Polysorb and the skin with subcuticular 4-0 Monocryl. The anterior axillary and midclavicular incisions were closed with subcuticular 4-0 Monocryl. All incisions were Steri-Stripped and dressed with sterile Tegaderm pads. Sponge, needle, and instrument counts were all correct. Prior to emergence from anesthesia, the Graham catheter was removed. Following emergence from anesthesia and extubation, the patient was taken to recovery room in stable condition. BRENDA ARREDONDO /[id number]
[2017-10-18 13:28] VITALS: BP 114/71
== END 2017-10-18 11:35 | disposition home or self-care (01) ==
LOC: MW.SDS 06:27
PROVIDERS: ATTEND Surgery
DX: K80.12 Calculus of gallbladder with acute and chronic cholecystitis without obstruction (principal); K21.9 Gastro-esophageal reflux disease without esophagitis; E66.9 Obesity, unspecified; Z68.31 Body mass index [BMI] 31.0-31.9, adult; F17.200 Nicotine dependence, unspecified, uncomplicated; Z79.899 Other long term (current) drug therapy; Z90.710 Acquired absence of both cervix and uterus; Z98.51 Tubal ligation status
CPT/HCPCS: 47562; A9270; J1100; J1170; J1200; J1885; J2250; J2405; J3010; J7120; 00790; 88304; J0690; J2704

== ENCOUNTER 2021-01-22 14:01 | Emergency (ER) | payer BC, OTHER ==
[2021-01-22] MEDS ORDERED: Ketorolac 30 MG/ML SDV IVPUSH ONE (14:29)
[2021-01-22] MEDS ORDERED: Sodium Chloride 0.9% 1,000 ML IV ONE (14:29)
[2021-01-22] MEDS ORDERED: fentaNYL 50 MCG/ML SDV IVPUSH ONE (14:30)
[2021-01-22] MEDS ORDERED: Ondansetron 4 MG/2 ML SDV IVPUSH ONE (14:31)
--- NOTE | 2021-01-22 14:37 | EDM.PDOC ---
ED HPI GENERAL MEDICAL PROBLEM - General Chief Complaint: Flank Pain Stated Complaint: POSSIBLE KIDNEY STONE Time Seen by Provider: 01/22/21 14:08 Source of Information: Reports: Patient History Limitations: Reports: No Limitations - History of Present Illness INITIAL COMMENTS - FREE TEXT/NARRATIVE: Aj reporting left flank pain. The patient states that she has had kidney st ones several times before, once requiring lithotripsy. For the last week she has had similar pain that intensified today. No nausea, vomiting, fever, dysuria. The patient states she just finished an antibiotic course she was prescribed for an upper respiratory infection. She has been drinking large amounts of oral fluids. She is otherwise healthy without chronic medical problems and takes no medications. left flank Pain Score (Numeric/FACES): 8 - Related Data Allergies Allergy/AdvReac Type Severity Reaction Status Date / Time No Known Allergies Allergy Verified 01/22/21 14:28 Home Meds: Home Meds Acetaminophen [Tylenol Extra Strength] 2 tab PO ASDIRECTED PRN 09/24/17 [History] Past Medical History - Past Health History Medical/Surgical History: Denies Medical/Surgical History HEENT History: Reports: Other (See Below) Other HEENT History: wears glasses Cardiovascular History: Reports: None Respiratory History: Reports: None Gastrointestinal History: Reports: GERD 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 History: Reports: Renal Calculus [employer]GER History: Reports: Musculoskeletal History: Reports: None Neurological History: Reports: Other (See Below) Other Neuro History: hx of motion sickness Psychiatric History: Reports: None Endocrine/Metabolic History: Reports: Obesity/BMI 30+ Hematologic History: Reports: None Immunologic History: Reports: None Oncologic (Cancer) History: Reports: None Dermatologic History: Reports: None - Infectious Disease History Infectious Disease History: Reports: Chicken Pox - Past Surgical History Head Surgeries/Procedures: Reports: None HEENT Surgical History: Reports: None Cardiovascular Surgical History: Reports: None GI Surgical History: Reports: Cholecystectomy Female Surgical History: Reports: Hysterectomy, Kidney stone extraction, Tubal Ligation Other Female Surgeries/Procedures: vaginal hysterectomy Endocrine Surgical History: Reports: None Neurological Surgical History: Reports: None Musculoskeletal Surgical History: Reports: None Oncologic Surgical History: Reports: None Dermatological Surgical History: Reports: None Social & Family History - Family History Family Medical History: No Pertinent Family History - Caffeine Use Caffeine Use: Reports: None Caffeine Use Comment: "very rarely" - Recreational Drug Use Recreational Drug Use: No - Living Situation & Occupation Living situation: Reports: Occupation: Employed ED ROS GENERAL - Review of Systems Review Of Systems: Comprehensive ROS is negative, except as noted in HPI. ED EXAM, RENAL/ - Physical Exam Exam: See Below Exam Limited By: No Limitations General Appearance: Alert, No Apparent Distress Ears: Normal External Exam Nose: Normal Inspection Throat/Mouth: Normal Inspection Head: Atraumatic, Normocephalic Neck: Normal Inspection Respiratory/Chest: No Respiratory Distress, Lungs Clear, Normal Breath Sounds Cardiovascular: Normal Peripheral Pulses, Regular Rate, Rhythm, No Murmur GI/Abdominal: Soft Back Exam: Normal Inspection. No: CVA Tenderness (L), CVA Tenderness (R) Extremities: Normal Inspection, Normal Range of Motion Neurological: Alert, Oriented Psychiatric: Normal Affect, Normal Mood Skin Exam: Warm, Dry, Intact, Normal Color, No Rash Lymphatic: No Adenopathy Course - Vital Signs Last Recorded V/S: Last Vital Signs Temp 36.3 C 01/22/21 14:22 Pulse 60 01/22/21 15:57 Resp 18 01/22/21 15:57 BP 145/84 H 01/22/21 15:57 Pulse Ox 96 01/22/21 15:57 - Orders/Labs/Meds Labs: Laboratory Tests 01/22/21 01/22/21 01/22/21 Range/Units 14:30 15:08 15:08 WBC 17.87 H (4.0-11.0) K/uL RBC 4.85 (4.30-5.90) M/uL Hgb 14.9 (12.0-16.0) g/dL Hct 43.4 (36.0-46.0) % MCV 89.5 (80.0-98.0) fL MCH 30.7 (27.0-32.0) pg MCHC 34.3 (31.0-37.0) g/dL RDW Std Deviation 42.6 (28.0-62.0) fl RDW Coeff of Eric 13 (11.0-15.0) % Plt Count 372 (150-400) K/uL MPV 9.80 (7.40-12.00) fL Neut % (Auto) 75.0 (48.0-80.0) % Lymph % (Auto) 18.2 (16.0-40.0) % Hardy % (Auto) 5.9 (0.0-15.0) % Eos % (Auto) 0.7 (0.0-7.0) % Baso % (Auto) 0.2 (0.0-1.5) % Neut # (Auto) 13.4 H (1.4-5.7) K/uL Lymph # (Auto) 3.3 H (0.6-2.4) K/uL Hardy # (Auto) 1.1 H (0.0-0.8) K/uL Eos # (Auto) 0.1 (0.0-0.7) K/uL Baso # (Auto) 0.0 (0.0-0.1) K/uL Nucleated RBC % 0.0 /100WBC Nucleated RBCs # 0 K/uL Sodium 137 (136-145) mmol/L Potassium 3.9 (3.5-5.1) mmol/L Chloride 104 (98-107) mmol/L Carbon Dioxide 21.8 (21.0-32.0) mmol/L BUN 9 (7.0-18.0) mg/dL Creatinine 0.9 (0.6-1.0) mg/dL Est Cr Clr Drug Dosing 73.90 mL/min Estimated GFR (MDRD) > 60.0 ml/min Glucose 91 (74-106) mg/dL Calcium 8.7 (8.5-10.1) mg/dL Total Bilirubin 0.7 (0.2-1.0) mg/dL AST 14 L (15-37) IU/L ALT 20 (14-63) IU/L Alkaline Phosphatase 99 (46-116) U/L Total Protein 8.0 (6.4-8.2) g/dL Albumin 3.7 (3.4-5.0) g/dL Globulin 4.3 H (2.6-4.0) g/dL Albumin/Globulin Ratio 0.9 (0.9-1.6) Urine Color YELLOW Urine Appearance CLEAR Urine pH 6.0 (5.0-8.0) Ur Specific Clarence <= 1.005 (1.001-1.035) Urine Protein NEGATIVE (NEGATIVE) mg/dL Urine Glucose (UA) NEGATIVE (NEGATIVE) mg/dL Urine Ketones NEGATIVE (NEGATIVE) mg/dL Urine Occult Blood SMALL H (NEGATIVE) Urine Nitrite POSITIVE H (NEGATIVE) Urine Bilirubin NEGATIVE (NEGATIVE) Urine Urobilinogen 0.2 (<2.0) EU/dL Ur Leukocyte Esterase NEGATIVE (NEGATIVE) Urine RBC 2-3 (0-2/HPF) Urine WBC 0-2 (0-5/HPF) Ur Epithelial Cells OCCASIONAL (NONE-FEW) Amorphous Sediment RARE (NEGATIVE) Urine Bacteria FEW (NEGATIVE) Urine Mucus RARE (NONE-MOD) Meds: Medications Discontinued Medications Generic Name Dose Route Start Last Admin Trade Name Charles PRN Reason Stop Dose Admin Fentanyl 50 mcg 01/22/21 14:30 01/22/21 15:30 Fentanyl 50 Mcg/Ml Sdv IVPUSH 01/22/21 14:31 50 mcg ONETIME ONE Administration Sodium Chloride 1,000 mls @ 999 mls/hr 01/22/21 14:29 01/22/21 15:10 Normal Saline IV 01/22/21 15:29 999 mls/hr STAT ONE Administration Ketorolac Tromethamine 30 mg 01/22/21 14:29 01/22/21 15:18 Ketorolac 30 Mg/Ml Sdv IVPUSH 01/22/21 14:30 30 mg ONETIME ONE Administration Ondansetron HCl 4 mg 01/22/21 14:31 01/22/21 15:18 Ondansetron 4 Mg/2 Ml Sdv IVPUSH 01/22/21 14:32 4 mg ONETIME ONE Administration - Re-Assessments/Exams Free Text/Narrative Re-Assessment/Exam: 01/22/21 16:03 Again, the patient denies any upper respiratory symptoms such as chest pain, cough, shortness of breath, runny nose, sore throat, ear fullness or pain. She denies any headache, visual symptoms, body aches or fevers. She denies any dysuria, vaginal symptoms, previously had a hysterectomy. She denies any abdominal pain, nausea, vomiting, constipation or diarrhea. She states that the Toradol and fentanyl improved her pain very quickly. No explanation for the leukocytosis or flank pain. Just finished a course of oral Keflex today. Case reviewed with Dr. Mendez. Departure - Departure Time of Disposition: 16:06 Disposition: Home, Self-Care 01 Condition: Good Clinical Impression: Flank pain Leukocytosis Qualifiers: Leukocytosis type: unspecified Qualified Code(s): D72.829 - Elevated white blood cell count, unspecified - Discharge Information Referrals: PCP,None [Primary Care Provider] - [facility] [Outside] [facility] [Outside] Forms: ED Department Discharge Additional Instructions: The following information is given to patients seen in the emergency department who are being discharged to home. This information is to outline your options for follow-up care. We provide all patients seen in our emergency department with a follow-up referral. The need for follow-up, as well as the timing and circumstances, are variable depending upon the specifics of your emergency department visit. If you don't have a primary care physician on staff, we will provide you with a referral. We always advise you to contact your personal physician following an emergency department visit to inform them of the circumstance of the visit and for follow-up with them and/or the need for any referrals to a consulting specialist. The emergency department will also refer you to a specialist when appropriate. This referral assures that you have the opportunity for follow-up care with a specialist. All of these measure are taken in an effort to provide you with optimal care, which includes your follow-up. Under all circumstances we always encourage you to contact your private physician who remains a resource for coordinating your care. When calling for follow-up care, please make the office aware that this follow-up is from your recent emergency room visit. If for any reason you are refused follow-up, please contact the [facility] Emergency Department at and asked to speak to the emergency department charge nurse. 1. Return to the emergency room promptly for fevers, urinary symptoms, nausea or vomiting 2. If your pain continues, follow-up promptly in primary care 3. Aleve 2 tabs a.m. and p.m. or ibuprofen 2-3 tabs 3 times daily as needed for pain 4. Drink plenty of fluids Sepsis Event Note (ED) - Evaluation Sepsis Screening Result: No Definite Risk - Focused Exam Vital Signs: Vital Signs Temp Pulse Resp BP Pulse Ox 01/22/21 15:57 60 18 145/84 H 96 01/22/21 15:48 70 18 151/86 H 96 01/22/21 15:27 65 18 146/84 H 96 01/22/21 15:24 62 18 141/76 H 96 01/22/21 14:22 36.3 C 92 18 159/114 H 97
[2021-01-22 15:44] LABS: BLOOD UREA NITROGEN,BUN 9 mg/dL (7.0-18.0); CARBON DIOXIDE,CO2 21.8 mmol/L (21.0-32.0); CHLORIDE,CL 104 mmol/L (98-107); GLUCOSE RANDOM 91 mg/dL (74-106); POTASSIUM,K 3.9 mmol/L (3.5-5.1); SODIUM,NA 137 mmol/L (136-145)
--- NOTE | 2021-01-22 15:54 | CT ---
Indication: Left-sided flank pain, history of renal stones. Comparison: None available. Technique: CT of the abdomen and pelvis with intravenous contrast. Findings: Limited views of the lung bases demonstrate no suspicious pulmonary opacities. Minimal subsegmental atelectasis/subpleural scarring. No pleural effusions. No pericardial effusion The liver is normal in appearance without focal abnormalities. No intra or extrahepatic biliary ductal dilatation. The spleen, gallbladder, and pancreas appear unremarkable. Mild nodularity of the left adrenal gland. Kidneys enhance symmetrically and there is no hydronephrosis. There is a 2 mm nonobstructive calculus in the upper pole of the right kidney. Mild caliectasis in the upper pole right, with minimal prominence of the other calices on the right. Pelvic phleboliths in the lower pelvis on image 146. No evidence of bowel obstruction. No focal or diffuse bowel wall thickening. Mild sigmoid colonic diverticulosis. The appendix is normal in appearance. No significant retroperiteonal, pelvic, mesenteric, or inguinal lymphadenopathy. Bladder is normal. Post hysterectomy change. The ovaries are relatively symmetric in size with a small dominant cyst on the right. Trace free fluid in the pelvis. No free intraperitoneal air. No aggressive appearing osseous lesions. The visceral vessels are patent. Impression: Tiny nonobstructive calculus in the upper pole of the right kidney. There is minimal caliectasis on the right, slightly more prominent in the upper pole. No definite CT explanation for left-sided abdominal pain. Mild sigmoid colonic diverticulosis but no definite CT evidence of diverticulitis. Please note that all CT scans at this facility use dose modulation, iterative reconstruction, and/or weight-based dosing when appropriate to reduce radiation dose to as low as reasonably achievable. Dictated by Akil Savage MD @ Jan 22 2021 3:40PM (Electronically Signed)
[2021-01-22 16:00] VITALS: BP 145/84; PULSE 60
== END 2021-01-22 16:30 | disposition home or self-care (01) ==
LOC: MW.ED 14:01
DX: R10.9 Unspecified abdominal pain (principal); D72.829 Elevated white blood cell count, unspecified; E66.9 Obesity, unspecified; Z68.31 Body mass index [BMI] 31.0-31.9, adult
CPT/HCPCS: 36415; 74176; 80053; 81001; 85025; 96374; 96375; 99284; J1885; J2405; J3010; J7030; 99283